=== PATIENT | female | born 1970 | race Caucasian/White ===

== ENCOUNTER → 2020-08-15 | Outpatient (CLI) | payer MEDICARE ==
[2020-08-15 14:40] LABS: African American GFR (CKD) >90 (>60 ml/min/1.73 sqM); Blood Urea Nitrogen 21 mg/dL (7-17); Non-African American GFR(CKD) >90 (>60 ml/min/1.73 sqM)
--- NOTE | 2020-08-16 08:02 | CT ---
EXAMINATION TYPE: CT urogram wo/w con DATE OF EXAM: 08/15/2020 HISTORY: Hematuria CT DLP: 5728.60mGycm Automated Exposure Control for Dose Reduction was Utilized. CONTRAST: CT scan of the abdomen and pelvis is performed without and with IV Contrast, patient injected with 10 0 mL of Isovue 300. COMPARISON: None FINDINGS: There are coronary artery calcifications present. Postop changes noted to the stomach. Smal l umbilical hernia contains fat LUNG BASES: No significant abnormality is appreciated, some minimal basilar atelectatic changes are p resent. LIVER/GB: Patient is post cholecystectomy.. PANCREAS: No significant abnormality is seen. SPLEEN: No significant abnormality is seen. ADRENALS: No significant abnormality is seen. KIDNEYS: Within the lower pole calyx seen on coronal image #79, series 22e and image 95 there is foca l low attenuation present, similar appearance present at the upper pole calyces, thought likely kriss l excretion, difficult to exclude small filling defect versus normal papilla. No evident stone, renal mass, hydronephrosis, there is no ureteral calculus and the ureters show normal course and caliber, distal right ureter is not opacified. Subcentimeter focal hypodensity present in each kidney may repr esent cyst but is indeterminate. Urinary bladder: Some probable artifact is present, no definitive mass BOWEL: Postop changes are noted to the small bowel. UTERUS/ADNEXA: No gross abnormality seen. Tampon is in place LYMPH NODES: No greater than 1cm abdominal or pelvic lymph nodes are appreciated. OSSEOUS STRUCTURES: Postop changes are noted status post posterior lumbar fusion T12-L4 with interver tebral spacing blocks present T12-L1, L3-4, L2-3. There is artifact present, there is a spacing block at L5-S1. Severe degenerative disc changes are present in the lower thoracic spine, there is a spina l curvature, mild kyphosis. There is a metallic density within the left posterior psoas muscle OTHER: Generator is present in the right gluteal position, lead courses into the thoracic canal and shows artifact. IMPRESSION: Findings within the renal collecting system thought likely to be normal papilla, follow-u p could be performed to assess for stability, any interval change. Coronary artery disease and postop changes. Tampon thought to be in place. Additional findings above.
== END | disposition home or self-care (01) ==
LOC: RADCTMAIN 13:54
PROVIDERS: ATTEND Urology
DX: I25.10 Atherosclerotic heart disease of native coronary artery without angina pectoris (principal); Z98.890 Other specified postprocedural states
CPT/HCPCS: 82565; 84520; 74178; 36415; 74400; Q9967

== ENCOUNTER → 2020-10-04 | Outpatient (CLI) | payer MEDICARE ==
[2020-10-04 15:00] LABS: Basophils # (A) 0.1 k/uL (0-0.2); Basophils % (A) 0 %; Eosinophils # (A) 0.2 k/uL (0-0.7); Eosinophils % (A) 2 %; HCT 38.5 % (34.0-46.0); HGB 12.6 gm/dL (11.4-16.0); Lymphocytes # (A) 3.7 k/uL (1.0-4.8); Lymphocytes % (A) 31 %; MCH 30.7 pg (25.0-35.0); MCHC 32.7 g/dL (31.0-37.0); MCV 93.6 fL (80.0-100.0); Mean Platelet Volume 7.8; Monocytes # (A) 0.9 k/uL (0-1.0); Monocytes % (A) 7 %; Neutrophils # (A) 6.8 k/uL (1.3-7.7); Neutrophils % (A) 58 %; Platelet Count 395 k/uL (150-450); RBC 4.11 m/uL (3.80-5.40); RDW 13.7 % (11.5-15.5); WBC 11.7 k/uL (3.8-10.6)
[2020-10-04 15:02] LABS: Appearance,Urine Clear (Clear); Bilirubin,Urine Negative (Negative); Blood,Urine Negative (Negative); Color,Urine Yellow; Glucose,Urine (UA) Negative (Negative); Ketones,Urine Negative (Negative); Leukocyte Esterase,Urine Negative (Negative); Nitrite,Urine Negative (Negative); PH, Urine 5.5 (5.0-8.0); Protein,Urine Negative (Negative); Specific Gravity,Urine 1.016 (1.001-1.035); Urobilinogen,Urine <2.0 mg/dL (<2.0)
[2020-10-04 15:04] LABS: African American GFR (CKD) >90 (>60 ml/min/1.73 sqM); Anion Gap 7 mmol/L; Blood Urea Nitrogen 17 mg/dL (7-17); Carbon Dioxide 29 mmol/L (22-30); Chloride 103 mmol/L (98-107); Glucose 84 mg/dL (74-99); Non-African American GFR(CKD) >90 (>60 ml/min/1.73 sqM); Potassium 4.8 mmol/L (3.5-5.1); Sodium 139 mmol/L (137-145)
== END | disposition home or self-care (01) ==
LOC: LABPAT 14:04
PROVIDERS: ATTEND Urology
DX: Z01.812 Encounter for preprocedural laboratory examination (principal); N39.0 Urinary tract infection, site not specified; N39.3 Stress incontinence (female) (male); S41.001A Unspecified open wound of right shoulder, initial encounter; X58.XXXA Exposure to other specified factors, initial encounter
CPT/HCPCS: 80048; 81003; 85025; 87086

== ENCOUNTER 2020-10-11 06:16 | Day surgery (SDC) | payer MEDICARE ==
[2020-10-10 11:00] VITALS: BMI 40.3
--- NOTE | 2020-10-10 19:24 | P.GSHP ---
History of Present Illness H&P Date: 10/10/20 49 yo female with asx benign micro hematuria alos c/o incontinence. Her history and physical were c/w ALIZA. Her UDS showed low leak point pressures c/w almost type 3 aliza. She was given different treatment options. She comes for a PVS[lynx] sling with cysto. the mesh controversy was discussed The alternative treatment options were also discussed.. She comes for this procedure. The risks and complications were also discussed. - Constitutional Constitutional: Denies chills, Denies fever - EENT Eyes: denies blurred vision, denies pain Ears, nose, mouth and throat: Denies headache, Denies sore throat - Cardiovascular Cardiovascular: Denies chest pain, Denies shortness of breath - Respiratory Respiratory: Denies cough, Denies 7 - Gastrointestinal Gastrointestinal: Denies abdominal pain, Denies diarrhea, Denies nausea, Denies vomiting - Genitourinary (Female) Genitourinary: Denies dysuria, Denies hematuria - Genitourinary (Male) Genitourinary: Denies dysuria, Denies hematuria - Musculoskeletal Musculoskeletal: Denies myalgias - Integumentary Integumentary: Denies pruritus, Denies rash - Neurological Neurological: Denies numbness, Denies weakness - Psychiatric Psychiatric: Denies anxiety, Denies depression - Endocrine Endocrine: Denies fatigue, Denies weight change Past Medical History Past Medical History: Fibromyalgia, GERD/Reflux, Osteoarthritis (OA), Thyroid Disorder Additional Past Medical History / Comment(s): IRON DEFICIENCY ANEMIA, takes toprol for tachycardia, neck & back pain, neuropathy,. HASHIMOTOS DISEASE History of Any Multi-Drug Resistant Organisms: MRSA Date of last positivie culture/infection: 12/05/14 MDRO Source:: Right Sinus ([facility]) Past Surgical History: Back Surgery, Bariatric Surgery, Cholecystectomy, Hysterectomy, Orthopedic Surgery Additional Past Surgical History / Comment(s): BILATERAL CARPEL TUNNEL, spinal cord stimulator right hip, lasik eye surg., gastric bypass, cystoscopy,. RIGHT ROTATOR CUFF. CERVICAL AND LUMBAR FUSION. Past Anesthesia/Blood Transfusion Reactions: Postoperative Nausea & Vomiting (PONV) Smoking Status: Never smoker Medications and Allergies Home Medications Medication Instructions Recorded Confirmed Type Atorvastatin [Lipitor] 20 mg PO DAILY 06/01/19 10/10/20 History DULoxetine HCL [Cymbalta] 60 mg PO DAILY 06/01/19 10/10/20 History Esomeprazole Magnesium [NexIUM] 40 mg PO DAILY 06/01/19 10/10/20 History Fexofenadine HCl [Belem Allergy] 180 mg PO DAILY 06/01/19 10/10/20 History Fluticasone Nasal [place] [Flonase 2 spr EA NOSTRIL DAILY 06/01/19 10/10/20 History Nasal [place]] L.acidoph,Paracasei, B.lactis 1 each PO DAILY 06/01/19 10/10/20 History [Probiotic] Levothyroxine Sodium [Levoxyl] 100 mcg PO DAILY 06/01/19 10/10/20 History Magnesium Gluconate [Magonate] 500 mg PO DAILY 06/01/19 10/10/20 History Metoprolol Succinate [Toprol XL] 25 mg PO 1200 06/01/19 10/10/20 History Metoprolol Succinate [Toprol XL] 50 mg PO BID 06/01/19 10/10/20 History Milnacipran HCl [Savella] 25 mg PO BID 06/01/19 10/10/20 History Montelukast [Singulair] 10 mg PO HS 06/01/19 10/10/20 History Pregabalin [Lyrica] 150 mg PO TID 06/01/19 10/10/20 History Progesterone, Micronized 400 mg PO DAILY 06/01/19 10/10/20 History [Progesterone] Zinc 50 mg PO DAILY 06/01/19 10/10/20 History Biotin 10,000 mcg PO DAILY 10/10/20 10/10/20 History Cholecalciferol (Vitamin D3) 125 mcg PO DAILY 10/10/20 10/10/20 History [Vitamin D3 (5000 Iu)] Docusate [Colace] 100 mg PO DAILY PRN 10/10/20 10/10/20 History EPINEPHrine (Auto Inject) [Epipen] 0.3 mg IM ONCE PRN 10/10/20 10/10/20 History Estradiol/Testosterone Pellet SQ DIRECTED 10/10/20 History Glycopyrrolate [Robinul] 1 mg PO DAILY 10/10/20 10/10/20 History Allergies Allergy/AdvReac Type Severity Reaction Status Date / Time lisinopril Allergy Intermediate lip Verified 10/10/20 10:18 swelling adhesive tape Allergy Unknown Verified 10/10/20 10:18 alcohol Allergy Rash/Hives Verified 10/10/20 10:18 [From Mastisol Liquid Adhesive] diclofenac [From Flector] Allergy Unknown Verified 10/10/20 10:18 gum mastic Allergy Rash/Hives Verified 10/10/20 10:18 [From Mastisol Liquid Adhesive] hydromorphone [From Dilaudid] Allergy Anaphylaxis Verified 10/10/20 10:18 methadone Allergy Unknown Verified 10/10/20 10:18 methyl salicylate Allergy Rash/Hives Verified 10/10/20 10:18 [From Mastisol Liquid Adhesive] morphine Allergy Rash/Hives Verified 10/10/20 10:20 storax Allergy Rash/Hives Verified 10/10/20 10:18 [From Mastisol Liquid Adhesive] Sulfa (Sulfonamide Allergy Rash/Hives Verified 10/10/20 10:21 Antibiotics) sulfamethoxazole Allergy Rash/Hives Verified 10/10/20 10:20 [From Bactrim] tolmetin [From Tolectin] Allergy Anaphylaxis Verified 10/10/20 10:20 trimethoprim [From Bactrim] Allergy Unknown Verified 10/10/20 10:18 vortioxetine Allergy Unknown Verified 10/10/20 10:18 [From Brintellix] bupropion [From Wellbutrin] AdvReac crying all Verified 10/10/20 10:18 the time steristrips AdvReac pulled Uncoded 10/10/20 10:20 skin off,blisters Surgical - Exam - General well developed, well nourished, obese - Eyes PERRL - ENT no hearing loss - Neck trachea midline - Respiratory normal expansion, normal respiratory effort - Abdomen Abdomen: soft, non tender - Genitourinary mobile urethra, aliza, sandhya test positive. 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
[~2020-10-11 06:16] MED LIST: AMPICILLIN 1,000 MG in SODIUM CHLORIDE 0.9% 50 ML IVPB PRN; GENTAMICIN 120 MG in SODIUM CHLORIDE 0.9% 100 ML IVPB PRN
[2020-10-11] MEDS ORDERED: ONDANSETRON 4 MG/2 ML VIAL ONE (07:08)
[2020-10-11] MEDS ORDERED: LACTATED RINGERS 1,000 ML IV ONE (07:12)
[2020-10-11] MEDS ORDERED: LIDOCAINE 1% (10MG/ML) FOR IV START INTRADERMA ONE (07:13)
[2020-10-11] MEDS ORDERED: ONDANSETRON 4 MG/2 ML VIAL IVP ONE (07:13)
[2020-10-11] MEDS ORDERED: DEXAMETHASONE SOD PHOSPHATE 4 MG/ML 1 ML VIAL IV ONE (07:14)
[2020-10-11] MEDS ORDERED: MIDAZOLAM 2 MG/2 ML VIAL IV ONE (07:16)
[2020-10-11] MEDS ORDERED: fentaNYL (PF) 50 MCG/ML 2 ML AMP IV ONE (07:20)
[2020-10-11] MEDS ORDERED: MIDAZOLAM 2 MG/2 ML VIAL ONE (07:20)
[2020-10-11] MEDS ORDERED: fentaNYL (PF) 50 MCG/ML 2 ML AMP ONE (07:20)
[2020-10-11] MEDS ORDERED: PROPOFOL 10 MG/ML 20 ML VIAL IV ONE (07:20)
[2020-10-11] MEDS ORDERED: SUCCINYLCHOLINE CHLORIDE 100 MG/5 ML SYR IV ONE (07:20)
[2020-10-11] MEDS ORDERED: LIDOCAINE 1% INJ 10MG/ML (20 ML MDV) ONE (07:20)
[2020-10-11] MEDS ORDERED: GENTAMICIN IN NACL ISO-OSM PMX 80 MG/100 ML BAG IVPB ONE (07:46)
[2020-10-11] MEDS ORDERED: BACITRACIN ZINC 500 UNIT/GM OINT 28.4 GM TUBE TOPICAL ONE ×2 (07:46→08:11)
[2020-10-11] MEDS ORDERED: VASOPRESSIN 20 UNIT/ML 1 ML VIAL IM ONE ×2 (07:46)
[2020-10-11] MEDS ORDERED: DOCUSATE 100 MG CAP PO PRN (08:27)
[2020-10-11] MEDS ORDERED: KETOROLAC 15 MG/ML 1 ML VIAL IVP PRN (08:28)
[2020-10-11] MEDS ORDERED: ONDANSETRON 4 MG/2 ML VIAL IVP PRN (08:28)
--- NOTE | 2020-10-11 08:37 | P.OP ---
Date of Procedure: 10/11/20 Preoperative Diagnosis: Stress urinary incontinence Postoperative Diagnosis: Same Procedure(s) Performed: Cystoscopy with pubovaginal sling, Lynx graft. Anesthesia: ALEN Surgeon: Nico Norman Estimated Blood Loss (ml): 50 Pathology: none sent Condition: stable Disposition: PACU Indications for Procedure: The patient is 49. She has stress urinary incontinence. Her leak point pressures are low. She comes for a pubovaginal sling with Lynx graft. The mesh controversy including infection bleeding pain dyspareunia erosion injury to adjacent organs have been explained and understood and accepted. Description of Procedure: The patient was brought to the operating suite. She is given a general endotracheal anesthesia. She's placed in lithotomy position with the sterile abdominal and vaginal prep. A Gray catheters introduced sterilely. The labia are sewn laterally to silk. A vaginal speculum was introduced in the vagina. The anterior vaginal mucosa is elevated off the submucosa with 10 mL of 20 mcg of vasopressin in 200 mL of normal saline. A midline suburethral incision is made. I dissect lateral the bladder neck bilaterally and penetrate the Endo pelvic fascia.. I then make incisions suprapubically at the corners of each pubis. I passed the Lynx introducers retropubically into the vaginal space bilaterally. I removed the Gray and perform cystoscopy to make sure there is no injury into the bladder or ureters and there is none. I then attached the Lynx graft to each end of the introducers and pull them back suprapubically. The graft lay nicely at the bladder neck. I removed the sheathing. I then closed the vaginal mucosa with 3-0 Vicryl. I excised the redundant graft at the suprapubic incisions. The suprapubic incisions are closed with 4-0 Vicryl. A vaginal packing is placed in the vagina. The labial stitches are removed. The Gray catheter then reintroduced prior to this and the urine was clear. The patient is awakened and returned recovery room good condition. Blood loss is approximately 50 mL. She'll be placed in the hospital postoperatively. Her condition is good.
[2020-10-11] MEDS ORDERED: FLUTICASONE 50MCG/SPRAY NASAL 16GM EA NOSTRIL SCH ×2 (09:00→21:00)
[2020-10-11] MEDS ORDERED: DULoxetine HCL 60 MG CAPSULE.DR PO SCH ×2 (09:00→21:00)
[2020-10-11] MEDS ORDERED: ATORVASTATIN 20 MG TAB PO SCH ×2 (09:00→21:00)
[2020-10-11] MEDS: LEVOTHYROXINE 100 MCG TAB PO SCH (10:33)
[2020-10-11] MEDS: GLYCOPYRROLATE 1 MG TAB PO SCH (10:35)
[2020-10-11] MEDS: PREGABALIN 75 MG CAP PO SCH ×2 (10:36→15:39)
[2020-10-11] MEDS: LORATADINE 10 MG TAB PO SCH (10:36)
[2020-10-11] MEDS: NON FORMULARY DRUG (Progesterone, Micronized [Progesterone] 200 MG Capsule) PO SCH (10:37)
[2020-10-11] MEDS: MILNACIPRAN HCL 25 MG PO SCH ×2 (10:37→20:42)
[2020-10-11] MEDS: DEXTROSE 5%-0.45% NACL 1,000 ML IV SCH (10:38)
[2020-10-11] MEDS: METOPROLOL TARTRATE 50 MG TAB PO SCH ×2 (11:01→20:36)
[2020-10-11] MEDS: METOPROLOL TARTRATE 25 MG TAB PO SCH (13:10)
[2020-10-11] MEDS: HYDROcodone/APAP 5-325MG 1 EACH TAB PO PRN ×2 (15:39→23:34)
[2020-10-11] MEDS ORDERED: MONTELUKAST 10 MG TAB PO SCH (21:00)
[2020-10-12] MEDS: PREGABALIN 75 MG CAP PO SCH ×2 (00:21→07:25)
[2020-10-12] MEDS: DEXTROSE 5%-0.45% NACL 1,000 ML IV SCH ×2 (05:31→13:31)
[2020-10-12] MEDS: LEVOTHYROXINE 100 MCG TAB PO SCH (05:59)
[2020-10-12] MEDS: MILNACIPRAN HCL 25 MG PO SCH (07:18)
[2020-10-12] MEDS: NON FORMULARY DRUG (Progesterone, Micronized [Progesterone] 200 MG Capsule) PO SCH (07:19)
[2020-10-12] MEDS: HYDROcodone/APAP 5-325MG 1 EACH TAB PO PRN (07:24)
[2020-10-12] MEDS: METOPROLOL TARTRATE 50 MG TAB PO SCH (07:25)
[2020-10-12] MEDS: GLYCOPYRROLATE 1 MG TAB PO SCH (07:25)
[2020-10-12] MEDS: LORATADINE 10 MG TAB PO SCH (07:26)
[2020-10-12 11:50] VITALS: BP 108/74; PULSE 59; RESP 19; TEMP 97.6
[2020-10-12] MEDS: METOPROLOL TARTRATE 25 MG TAB PO SCH (14:08)
--- NOTE | 2020-10-12 17:36 | P.DS ---
Providers Expected date of discharge: 10/12/20 Attending physician: Nico Norman Primary care physician: [facility] Course: On the day of admission, the patient underwent an uncomplicated Lynx pubovaginal sling. She remained afebrile with stable vital signs. On the first postoperative day, Gray catheter was draining clear yellow urine. Incisions were clean and dry. The Gray catheter was removed, along with vaginal packing. She was subsequently able to void and empty her bladder completely. Procedures: Lynx sling on 10/11/2020. Patient Condition at Discharge: Good Plan - Discharge Summary Discharge Rx Participant: Yes New Discharge Prescriptions: New Cephalexin [Keflex] 500 mg PO Q8HR 5 Days #15 cap No Action Zinc 50 mg PO DAILY Magnesium Gluconate [Magonate] 500 mg PO DAILY Milnacipran HCl [Savella] 25 mg PO BID Fluticasone Nasal [place] [Flonase Nasal [place]] 2 spr EA NOSTRIL DAILY Fexofenadine HCl [Belem Allergy] 180 mg PO DAILY Montelukast [Singulair] 10 mg PO HS Esomeprazole Magnesium [NexIUM] 40 mg PO DAILY Pregabalin [Lyrica] 150 mg PO TID Levothyroxine Sodium [Levoxyl] 100 mcg PO DAILY Progesterone, Micronized [Progesterone] 400 mg PO DAILY DULoxetine HCL [Cymbalta] 60 mg PO DAILY Atorvastatin [Lipitor] 20 mg PO DAILY L.acidoph,Paracasei, B.lactis [Probiotic] 1 each PO DAILY Cholecalciferol (Vitamin D3) [Vitamin D3 (5000 Iu)] 125 mcg PO DAILY Estradiol/Testosterone Pellet SQ DIRECTED HYDROcodone/APAP 5-325MG [[place] 5-325] 1 tab PO Q6HR PRN PRN Reason: Pain EPINEPHrine (Auto Inject) [Epipen] 0.3 mg IM ONCE PRN PRN Reason: Anaphylaxis Glycopyrrolate [Robinul] 1 mg PO DAILY Docusate [Colace] 100 mg PO DAILY PRN PRN Reason: Constipation Biotin 10,000 mcg PO DAILY Metoprolol Tartrate [Lopressor] 25 mg PO DAILY@1200 Metoprolol Tartrate [Lopressor] 50 mg PO BID Discharge Medication List Atorvastatin [Lipitor] 20 mg PO DAILY 06/01/19 [History] DULoxetine HCL [Cymbalta] 60 mg PO DAILY 06/01/19 [History] Esomeprazole Magnesium [NexIUM] 40 mg PO DAILY 06/01/19 [History] Fexofenadine HCl [Belem Allergy] 180 mg PO DAILY 06/01/19 [History] Fluticasone Nasal [place] [Flonase Nasal [place]] 2 spr EA NOSTRIL DAILY 06/01/19 [History] L.acidoph,Paracasei, B.lactis [Probiotic] 1 each PO DAILY 06/01/19 [History] Levothyroxine Sodium [Levoxyl] 100 mcg PO DAILY 06/01/19 [History] Magnesium Gluconate [Magonate] 500 mg PO DAILY 06/01/19 [History] Milnacipran HCl [Savella] 25 mg PO BID 06/01/19 [History] Montelukast [Singulair] 10 mg PO HS 06/01/19 [History] Pregabalin [Lyrica] 150 mg PO TID 06/01/19 [History] Progesterone, Micronized [Progesterone] 400 mg PO DAILY 06/01/19 [History] Zinc 50 mg PO DAILY 06/01/19 [History] Biotin 10,000 mcg PO DAILY 10/10/20 [History] Cholecalciferol (Vitamin D3) [Vitamin D3 (5000 Iu)] 125 mcg PO DAILY 10/10/20 [History] Docusate [Colace] 100 mg PO DAILY PRN 10/10/20 [History] EPINEPHrine (Auto Inject) [Epipen] 0.3 mg IM ONCE PRN 10/10/20 [History] Estradiol/Testosterone Pellet SQ DIRECTED 10/10/20 [History] Glycopyrrolate [Robinul] 1 mg PO DAILY 10/10/20 [History] HYDROcodone/APAP 5-325MG [[place] 5-325] 1 tab PO Q6HR PRN 10/11/20 [History] Metoprolol Tartrate [Lopressor] 25 mg PO DAILY@1200 10/11/20 [History] Metoprolol Tartrate [Lopressor] 50 mg PO BID 10/11/20 [History] Cephalexin [Keflex] 500 mg PO Q8HR 5 Days #15 cap 10/12/20 [Rx] Follow up Appointment(s)/Referral(s): Nico Norman MD [STAFF PHYSICIAN] - 1 Week Patient Instructions/Handouts: *Surgery [facility] - Cystoscopy Discharge Instructions, Cephalexin (By mouth), Bladder Sling (DC) Activity/Diet/Wound Care/Special Instructions: Diet as tolerated. Okay to shower. Resume preoperative medications. No strenuous activity. Discharge Disposition: HOME SELF-CARE
== END 2020-10-12 15:15 | disposition home or self-care (01) ==
LOC: OR 06:16 → 5NMEDONC 09:33 → OR 10-12 15:15
PROVIDERS: ATTEND Urology
DX: N39.3 Stress incontinence (female) (male) (principal); M79.7 Fibromyalgia; K21.9 Gastro-esophageal reflux disease without esophagitis; M19.90 Unspecified osteoarthritis, unspecified site; E07.9 Disorder of thyroid, unspecified; D50.9 Iron deficiency anemia, unspecified; R00.0 Tachycardia, unspecified; G62.9 Polyneuropathy, unspecified; Z98.890 Other specified postprocedural states; Z20.822 Contact with and (suspected) exposure to COVID-19; Z79.899 Other long term (current) drug therapy; Z88.5 Allergy status to narcotic agent; Z88.8 Allergy status to other drugs, medicaments and biological substances
CPT/HCPCS: 57288; 87635; C1771; J1580 ×2; J2250; J1100; J2405; J2001; J3010; J0330; J2704

== ENCOUNTER → 2023-08-20 | Outpatient (CLI) | payer MEDICARE | END | disposition home or self-care (01) | LOC: LABWHC1 10:23 | PROVIDERS: ATTEND Psychologist Clinical | DX: Z01.818 Encounter for other preprocedural examination (principal) | CPT/HCPCS: 36415; 93005 ==